=== PATIENT | male | born 1980 | race Caucasian/White ===

== ENCOUNTER 2017-12-21 18:17 | Emergency (ER) | payer BC ==
[2017-12-21 22:40] LABS: ADD MAN DIFF? NO
[2017-12-21 22:41] LABS: BASOPHILS % 0.6 % (0.0-2.0); EOSINOPHILS # 0.2 10^3/ul (0.0-0.5); EOSINOPHILS % 2.8 % (0.0-7.0); HEMATOCRIT 42.7 % (42.0-52.0); HEMOGLOBIN 14.7 g/dl (14.0-18.0); LYMPHOCYTES # 2.6 10^3/ul (0.8-2.9); LYMPHOCYTES % 36.2 % (15.0-51.0); MEAN CORPUSCULAR HEMOGLOBIN 29.1 pg (29.0-33.0); MEAN CORPUSCULAR HGB CONC 34.4 g/dl (32.0-37.0); MEAN CORPUSCULAR VOLUME 84.4 fl (82.0-101.0); MEAN PLATELET VOLUME 9.4 fl (7.4-10.4); MONOCYTE # 0.7 10^3/ul (0.3-0.9); MONOCYTES % 10.3 % (0.0-11.0); NEUTROPHIL # 3.6 10^3/ul (1.6-7.5); PLATELET COUNT 167 10^3/UL (140-415); RED BLOOD COUNT 5.06 10^6/ul (4.70-6.10)
[2017-12-21 22:41] LABS: WHITE BLOOD COUNT 7.2 10^3/ul (4.8-10.8)
[2017-12-21 23:04] LABS: ALANINE AMINOTRANSFERASE 79 IU/L (13-69); ALBUMIN 3.9 g/dl (3.3-4.9); ALBUMIN/GLOBULIN RATIO 1.18; ALKALINE PHOSPHATASE 33 IU/L (42-121); ANION GAP 11 (8-16); ASPARTATE AMINO TRANSFERASE 53 IU/L (15-46); BILIRUBIN,INDIRECT 0.4 mg/dl (0-1.1); BILIRUBIN,TOTAL 0.4 mg/dl (0.2-1.3); BLOOD UREA NITROGEN 20 mg/dl (7-20); CALCIUM 9.1 mg/dl (8.4-10.2); CARBON DIOXIDE 27 mmol/L (21-31); CHLORIDE 109 mmol/L (97-110); CHOL/HDL RATIO 3.1 RATIO; CHOLESTEROL 134 mg/dl (100-200); CREATININE 0.84 mg/dl (0.61-1.24); GLUCOSE 91 mg/dl (70-220); HDL CHOLESTEROL 43 mg/dl (28-63); LDL CHOLESTEROL,CALCULATED 75 mg/dl; POTASSIUM 4.3 mmol/L (3.5-5.1); SODIUM 143 mmol/L (135-144); TOTAL PROTEIN 7.2 g/dl (6.1-8.1); TRIGLYCERIDES 80 mg/dl (0-149)
[2017-12-21 23:14] LABS: B-TYPE NATRIURETIC PEPTIDE 72 PG/ML (0-125); TROPONIN-I < 0.012 ng/ml (0.000-0.120)
== END 2017-12-22 00:10 | disposition home or self-care (01) ==
LOC: E/R 12-22 00:10
DX: R07.89 Other chest pain (principal); R40.2142 Coma scale, eyes open, spontaneous, at arrival to emergency department; R40.2252 Coma scale, best verbal response, oriented, at arrival to emergency department; R40.2362 Coma scale, best motor response, obeys commands, at arrival to emergency department; F17.210 Nicotine dependence, cigarettes, uncomplicated
CPT/HCPCS: 36415; 71045; 80053; 80061; 83880; 84484; 85025; 93005; 99285-25